=== PATIENT | female | born 1975 | race Hispanic/Latino ===

== ENCOUNTER 2016-10-26 08:24 | Emergency (ER) | payer MEDICAID ==
[2016-10-26 08:28] VITALS: BP 131/70; PULSE 83; RESP 20; O2SAT 100
[2016-10-26 08:29] VITALS: BMI 22.9
[2016-10-26 08:33] VITALS: TEMP 98.2
[2016-10-26 08:50] LABS: ADD MANUAL DIFF? NO
[2016-10-26 09:05] LABS: ALB/GLOB RATIO 0.9 (1.1-1.8); ALKALINE PHOSPHATASE 193 U/L (38-133); ALT/SGPT 28 U/L (7-56); AST/SGOT 24 U/L (15-39); BLOOD UREA NITROGEN 9 mg/dL (7-21); CALCIUM 8.9 mg/dL (8.4-10.5); CARBON DIOXIDE 22 mmol/L (21-33); CHLORIDE 105 mmol/L (98-107); GFR AFRICAN-AMERICAN > 60; GLUCOSE,RANDOM 83 mg/dL (70-110); POTASSIUM 3.6 mmol/L (3.6-5.0); SODIUM 135 mmol/L (132-148)
[2016-10-26 09:23] LABS: BASO # 0.03 K/mm3 (0.0-2.0); BASO % 0.2 % (0.0-3.0); EOS # 0.1 (0.0-0.7); EOS % 0.6 % (1.5-5.0); GRAN # 12.61 (1.4-6.5); GRAN % 81.4 % (50.0-68.0); LYMPH # 1.8 (1.2-3.4); LYMPH % 11.5 % (22.0-35.0); MEAN CELL VOLUME 90.1 fL (80.0-105.0); MEAN CORPUSCULAR HEMOGLOBIN 30.4 pg (25.0-35.0); MEAN CORPUSCULAR HGB CONC 33.8 g/dl (31.0-37.0); MEAN PLATELET VOLUME 11.3 fl (7.0-11.0); MONO % 6.3 % (1.0-6.0); PLATELET COUNT 261 10^3/uL (120.0-450.0); RED CELL DISTRIBUTION WIDTH 13.5 % (11.5-14.5); WHITE BLOOD COUNT 15.5 10^3/ul (4.5-11.0)
[2016-10-26 09:25] LABS: INR 0.93 (0.93-1.08); PARTIAL THROMBOPLASTIN TIME 26.1 Seconds (23.7-30.8)
--- NOTE | 2016-10-26 12:41 | ED PDOC ---
Arrival/HPI - General Chief Complaint: Abdominal Pain Time Seen by Provider: 10/26/16 09:16 Historian: Patient - History of Present Illness Narrative History of Present Illness (Text): 10/26/16 08:30 A 40 year old female with A3, whose 38 weeks , presents to the emergency department complaining of labor pains since last night. Patient reports she started experiencing contractions last night and is unsure if her water broke. She reports her last appointment with ob-deputy harbormaster was 2 months ago. She had an ultrasound done which showed transverse presentation of fetus. Patient deemed high risk due to advanced maternal and history of breast cancer. Patient denies any fever, nausea, vomiting, chest pain, shortness of breath or any other complaints. Last menstrual period unknown. Ob-Gym Instructor: Located in [facility] ([facility] Time/Duration: Other (Last night) Symptom Course: Unchanged Quality: Other Context: Other Past Medical History - Provider Review Nursing Documentation Reviewed: Yes - Hematological/Oncological Hx Cancer: Yes (right breast) - Psychiatric Hx Substance Use: No - Anesthesia Hx Anesthesia: Yes Hx Anesthesia Reactions: No Hx Malignant Hyperthermia: No Family/Social History - Physician Review Nursing Documentation Reviewed: Yes Family/Social History: No Known Family HX Smoking Status: Current Some Days Smoker Hx Alcohol Use: No Hx Substance Use: No Allergies/Home Meds Allergies/Adverse Reactions: Allergies No Known Allergies Allergy (Verified 10/26/16 08:38) Review of Systems - Physician Review All systems were reviewed & negative as marked: Yes - Review of Systems Constitutional: absent: Fevers Respiratory: absent: SOB Cardiovascular: absent: Chest Pain Gastrointestinal: Other (Labor pains). absent: Nausea, Vomiting Physical Exam Vital Signs Reviewed: Yes Vital Signs Temp Pulse Resp BP Pulse Ox 10/26/16 08:27 98.2 F 83 20 131/70 100 Temperature: Afebrile Blood Pressure: Normal Pulse: Regular Respiratory Rate: Normal Appearance: Positive for: Well-Appearing, Non-Toxic, Uncomfortable Pain Distress: Mild Mental Status: Positive for: Alert and Oriented X 3 - Systems Exam Head: Present: Atraumatic, Normocephalic Pupils: Present: PERRL Extroacular Muscles: Present: EOMI Conjunctiva: Present: Normal Mouth: Present: Moist Mucous Membranes Respiratory/Chest: Present: Clear to Auscultation, Good Air Exchange, Other ( heart rate in the 130's). No: Respiratory Distress, Accessory Muscle Use Cardiovascular: Present: Regular Rate and Rhythm, Normal S1, S2. No: Murmurs Abdomen: Present: Other (Abdomen gravid, Positive movement ) Genitourinary/Pelvic Exam: Present: Other (Dilation approximately 4 cm) Upper Extremity: Present: Normal Inspection. No: Cyanosis, Edema Lower Extremity: Present: Normal Inspection. No: Edema Neurological: Present: GCS=15, CN II-XII Intact, Speech Normal Skin: Present: Warm, Dry, Normal Color. No: Rashes Psychiatric: Present: Alert, Oriented x 3, Normal Insight, Normal Concentration Medical Decision Making ED Course and Treatment: 10/26/16 08:30 Impression: A 40 year old female with labor pains. High risk due to advanced maternal age and history of breast cancer. On exam, dilation approximately 4 cm , abdomen gravid and positive movement. Plan: -- Labs -- Hospital transfer Progress Notes: Bedside ultrasound showed cephalic presentation of fetus. 10/26/16 09:00 Case discussed in detail with ob-deputy harbormaster conversion worker, Dr. Sanford, at [facility], who accepted transfer for delivery. I have discussed the plan with the patient, who expresses understanding. - Lab Interpretations Lab Results: 10/26/16 08:47 10/26/16 08:47 Lab Results 10/26/16 08:47: Sodium 135, Potassium 3.6, Chloride 105, Carbon Dioxide 22, Anion Gap 12, BUN 9, Creatinine 0.7, Est GFR ( Amer) > 60, Est GFR (Non- Af Amer) > 60, Random Glucose 83, Calcium 8.9, Total Bilirubin 1.0, AST 24, ALT 28, Alkaline Phosphatase 193 H, Total Protein 7.0, Albumin 3.3, Globulin 3.7, Albumin/Globulin Ratio 0.9 L 10/26/16 08:47: PT 10.0, INR 0.93, APTT 26.1 10/26/16 08:47: WBC 15.5 H, RBC 3.55, Hgb 10.8 L, Hct 32.0 L, MCV 90.1, MCH 30.4 , MCHC 33.8, RDW 13.5, Plt Count 261, MPV 11.3 H, Gran % 81.4 H, Lymph % (Auto) 11.5 L, [place] % (Auto) 6.3 H, Eos % (Auto) 0.6 L, Baso % (Auto) 0.2, Gran # 12.61 H, Lymph # 1.8, [place] # 1.0 H, Eos # 0.1, Baso # 0.03 - Scribe Statement The provider has reviewed the documentation as recorded by the Scribe Mary Swift Provider Scribe Attestation: All medical record entries made by the Scribe were at my direction and personally dictated by me. I have reviewed the chart and agree that the record accurately reflects my personal performance of the history, physical exam, medical decision making, and the department course for this patient. I have also personally directed, reviewed, and agree with the discharge instructions and disposition. Disposition/Present on Arrival - Present on Arrival Any Indicators Present on Arrival: No History of DVT/PE: No History of Uncontrolled Diabetes: No Urinary Catheter: No History of Decub. Ulcer: No History Surgical Site Infection Following: None - Disposition Have Diagnosis and Disposition been Completed?: Yes Diagnosis: Active labor at term Disposition: Transfer [facility] Disposition Time: 09:00 Patient Plan: Transfer To Condition: STABLE Referrals: PCP,NO [Primary Care Provider] - Follow up with primary
== END 2016-10-26 09:20 | disposition short-term general hospital (02) ==
LOC: EDBD → ED 08:24
DX: O80 Encounter for full-term uncomplicated delivery (principal); Z3A.38 38 weeks gestation of pregnancy